=== PATIENT | female | born 2000 | race Asian ===

== ENCOUNTER 2023-01-09 00:45 | Emergency (ER) | payer OTHER ==
[~2023-01-09] VITALS: Ht 154.9 cm; Wt 54.5 kg
[2023-01-09 00:46] VITALS: BP 151/88
[2023-01-09 02:23] LABS: APPEARANCE,URINE CLEAR (CLEAR); BILIRUBIN,URINE NEGATIVE (NEGATIVE); GLUCOSE, URINE (UA) NEGATIVE (NEGATIVE); KETONES,URINE NEGATIVE (NEGATIVE); LEUKOCYTE ESTERASE ,URINE TRACE (NEGATIVE); NITRATE,URINE NEGATIVE (NEGATIVE); OCCULT BLOOD,URINE NEGATIVE (NEGATIVE); PROTEIN,URINE NEGATIVE (NEGATIVE); SPECIFIC GRAVITIY, URINE 1.024 (1.003-1.030); UROBILINOGEN,URINE <=1.0 mg/dL (<=1.0)
[2023-01-09 02:28] LABS: RBC,URINE 0-2 /HPF (0-2)
[2023-01-09 02:29] LABS: BACTERIA,URINE None Seen /HPF (None Seen); SQUAMOUS EPITHELIAL CELL,UR Few /LPF (None Seen)
== END 2023-01-09 03:54 | disposition home or self-care (01) ==
LOC: EMS 00:48
DX: S00.83XA Contusion of other part of head, initial encounter (principal); V98.8XXA Other specified transport accidents, initial encounter; Y93.89 Activity, other specified; Y92.89 Other specified places as the place of occurrence of the external cause; Y99.8 Other external cause status
CPT/HCPCS: 70450; 72040; 81001; 84703; 99285

== ENCOUNTER 2023-01-09 19:52 | Emergency (ER) | payer OTHER ==
[~2023-01-09] VITALS: Ht 154.9 cm; Wt 54.5 kg
[2023-01-09 21:00] VITALS: BP 119/77
== END 2023-01-09 21:06 | disposition home or self-care (01) ==
LOC: EMS 19:52
DX: S83.91XA Sprain of unspecified site of right knee, initial encounter (principal); V98.8XXA Other specified transport accidents, initial encounter; Y93.89 Activity, other specified; Y92.89 Other specified places as the place of occurrence of the external cause; Y99.8 Other external cause status
CPT/HCPCS: 29505; 99283

== ENCOUNTER 2023-01-16 10:44 | Emergency (ER) | payer OTHER ==
[~2023-01-16] VITALS: Ht 154.9 cm; Wt 54.0 kg
[2023-01-16 10:45] VITALS: BP 137/56
[2023-01-16] MEDS ORDERED: IBUP-1492 PO (11:38)
[2023-01-16] MEDS ORDERED: METH-659 PO (11:39)
== END 2023-01-16 11:52 | disposition home or self-care (01) ==
LOC: EMS 10:50
DX: S16.1XXA Strain of muscle, fascia and tendon at neck level, initial encounter (principal); S09.90XA Unspecified injury of head, initial encounter; X58.XXXA Exposure to other specified factors, initial encounter; Y93.89 Activity, other specified; Y92.89 Other specified places as the place of occurrence of the external cause; Y99.8 Other external cause status
CPT/HCPCS: 99283; Z7502